=== PATIENT | female | born 1965 | race Caucasian/White ===

== ENCOUNTER 2025-04-12 06:20 | Day surgery (SDC) | payer BC, OTHER ==
[2025-04-09 12:20] LABS: Absolute Basophils 0.1 K/uL (0-0.5); Absolute Eosinophils 0.1 K/uL (0-0.5); Absolute Monocytes 0.3 K/uL (0.1-1.3); Absolute Neutrophil 2.4 K/uL (1.8-8.0); Basophils % 1.1 % (0-1.3); Eosinophils % 1.4 % (0-4.4); Hematocrit 40.5 % (36.0-45.0); Hemoglobin 13.8 g/dL (12.0-15.0); Lymphocytes % 42.2 % (15.3-44.8); MCH 29.7 pg (27.0-35.0); MCV 87.4 fL (80-100); MPV 8.2 fL (7.6-11.3); Monocytes % 6.8 % (3.3-12.3); Neutrophils % 48.5 % (41.7-73.7); Nucleated Red Blood Cells % 0.1 % (0-0); Platelets 242 thou/uL (152-406); RBC Red Blood Cell Count 4.63 M/uL (3.86-4.86); Red Cell Distribution Width 13.8 % (12.1-15.2)
[2025-04-09 12:32] LABS: Specific Gravity 1.022 (1.005-1.030); Sqamous Epithelial <5 /HPF (None Seen); Transitional Epithelial <5 /HPF (None Seen); Urine Bacteria None Seen /HPF (<20); Urine Bilirubin NEGATIVE (Negative); Urine Blood 1+ (Negative); Urine Clarity Clear (Clear); Urine Color Light-Yellow (Yellow); Urine Culture Reflex Order NOT NEEDED; Urine Glucose TRACE (Negative); Urine Ketones NEGATIVE (Negative); Urine Microscopic Reflex YN ORDER UMIC; Urine Mucus Slight /HPF (None Seen); Urine Nitrite NEGATIVE (Negative); Urine Protein NEGATIVE (Negative); Urine RBC <5 /HPF (None Seen); Urine Urobilinogen Normal (Normal); Urine WBC <5 /HPF (<5)
[2025-04-09 12:38] LABS: Anion Gap 9.4 mEq/L (5.0-15.0); Potassium 4.4 mEq/L (3.5-5.1)
[2025-04-12] MEDS: Ringers Lactate 1,000 ML IV ONE ×2 (06:50→10:08)
[2025-04-12] MEDS: SCOPOLAMINE HYDROBROMIDE PATCH TD ONE (07:30)
[2025-04-12] MEDS ORDERED: ROCURONIUM 50 MG/5 ML VIAL IV ONE (07:34)
[2025-04-12] MEDS ORDERED: MIDAZOLAM HCL 2 MG/2 ML INJ ONE (07:34)
[2025-04-12] MEDS ORDERED: FENTANYL CITR 100 MCG/2 ML ONE (07:34)
[2025-04-12] MEDS ORDERED: LIDOCAINE 2% MPF 5 ML VIAL ONE (07:34)
[2025-04-12] MEDS ORDERED: propofoL 200 MG/20 ML VIAL IV ONE (07:34)
[2025-04-12] MEDS ORDERED: ONDANSETRON 4 MG/2 ML VIAL ONE (07:34)
[2025-04-12] MEDS ORDERED: SUCCINYLCHOLINE 20 MG/ML (10 ML) IV ONE (07:37)
[2025-04-12] MEDS ORDERED: SUGAMMADEX SODIUM 200 MG/2 ML VIAL IV ONE (07:37)
[2025-04-12] MEDS ORDERED: HYDROMORPHONE HCL 1 MG/ML INJ ONE (07:37)
[2025-04-12] MEDS ORDERED: EPHEDRINE SULF 50 MG/ML VIAL ONE (07:56)
[2025-04-12] MEDS ORDERED: GLYCOPYRROLATE 0.2 MG/ML SYR ONE ×2 (07:57→10:17)
[2025-04-12] MEDS: CEFAZOLIN SODIUM 1 GM/VIAL ONE (08:11)
[2025-04-12] MEDS: CEFAZOLIN SODIUM 2 GM/VIAL ONE (08:11)
[2025-04-12] MEDS ORDERED: dexAMETHasone 10 MG/ML VIAL ONE (08:12)
[2025-04-12] MEDS: BUPIVACAINE 0.25% PF 30 ML VIAL ONE (08:32)
[2025-04-12] MEDS ORDERED: Mastisol Adhesive Liq ONE (09:37)
[2025-04-12] MEDS ORDERED: KETOROLAC 30 MG/ML INJ ONE (10:04)
[2025-04-12] MEDS ORDERED: NEOSTIGMINE 1 MG/ML -10 ML VIAL ONE (10:18)
[2025-04-12] MEDS: FENTANYL CITR 100 MCG/2 ML ONE (11:04)
[2025-04-12] MEDS: HYDROCODONE/APAP 5/325 MG TAB ONE (12:00)
[2025-04-12 15:01] VITALS: BP 135/68; TEMP 97; O2SAT 100
--- NOTE | 2025-04-12 20:42 | OP ---
Date of Procedure: 04/12/2025 Surgeon: Aracelis Childress MD Preoperative Diagnosis: Postmenopausal bleeding and fibroids. Postoperative Diagnosis: Postmenopausal bleeding and fibroids. Procedures Performed: Total laparoscopic hysterectomy, bilateral salpingo-oophorectomy, pelvic washi ngs, and morcellation for retrieval of the uterine specimen, which was significantly enlarged had to be morcellate to the vagina. Indication: The patient is a 59-year-old with postmenopausal bleeding. Transvaginal ultrasound was performed. Endometrium appeared to be taken. She also had a large 6.5 cm fibroid. All these were e xplained to the patient. Then endometrial sampling was performed with hysteroscopy which was negativ e for leiomyosarcoma atypia malignancy of the endometrium. Once she was counseled about her options of observation with ultrasound followup and recurrent sympto ms that we would continue to treat her. She wanted to proceed with definitive treatment using hyster ectomy. All the benefits and risks were reviewed with the patient and consented. She was taken back to OR after re-consented in the preoperative area and her also was present to ask questions and they were answered to the satisfaction. Description Of Procedure: She was taken to the OR, placed in supine fashion on the operating table. General anesthesia was given. She was placed in a dorsal lithotomy position in Barrington stirrups. 2 g of Ancef was given. Time-out was done and procedure started. The speculum was placed to expose the cervix. Anterior lip grasped with a single-tooth tenaculum. Cervix was dilated to 18-Iraqi and a large cup uterine manipulator was used to fix in place and Godoy to drain the bladder and attached to gravity bag. This area was then draped. The fascia and skin were injected with 0.25% bupivacaine at all incision sites prior to making incisi ons. Infraumbilical incision made with a scalpel, using open laparoscopy technique. Fascia was incised ta gged with 0 Vicryl sutures. Peritoneum was entered bluntly. S retractors were placed after adequate insufflation Sherrie was placed, unremarkable. Upper abdominal surface was unremarkable a s well. The patient was placed in steep Trendelenburg and suprapubic and left lower quadr ant ports 5 ports were placed. There was adequate visualization and I believe that I needed another hand so a right lower quadrant incision was also made with a trocar. Once the instruments in good position, then proceeded with hysterectomy. Bilateral salpingo-oophorectomy and hysterectomy. The left round ligament was opened up and pedicle created taken down with the LigaSure. The dissection carried towards the IP ligament through the mes osalpinx. Once the medial and lateral leaves of the broad ligament of the pelvic peritoneum were ope april up then the pedicle was isolated. Similar dissection was performed opposite side taking down the round ligament and IP ligament. Then, the IP was cauterized and cut. Pelvic washings were first pe rformed for started operating. On the right side, the IP was taken down as well as the round ligament. Then, anterior broad ligamen t was opened up all the way from 1 round ligament to the other. The bladder was dissected inferiorly at least 2 cm below the level of the cup and posteriorly the peritoneum taken down to both uterosacr al ligaments and then the ureter identified and dissected away from the medial leaf of the broad liga ment, especially on the left side. There was no problem on the right side to isolated and it was not scar. Then, the broad ligaments were both taken down with the help of the LigaSure. Vessels were skeletoni zed, cauterized and cut with the help of LigaSure and bipolar, a curved tip grasper. Then monopolar was then used to perform a circumferential colpotomy and detached the specimen. Vaginal morcellation. Two Allis clamps were placed on the cervix and the specimen brought into visio n through the vaginal canal. The [place] clamps were then placed on the cervix and manual morc ellation was conducted with a 10 blade for good exposure with 2 Caleb and suction tip and a Wahl spe culum posteriorly. Once all the specimen was morcellated and removed, then vaginal occluder was plac ed. Gloves and gowns were all changed and then I went back and she was repositioned in the T Ankush. Vaginal cuff was closed with the help of 2 angle 0 simple PDS sutures and then 3 [id number] in the middle paying close attention to including the connective tissue of both anterior and posterior v aginal bentley. Once there was excellent closure and hemostasis. Both ureters were checked, no eviden ce of any trauma to them. All pedicles were hemostatic. The appendix and upper abdominal surfaces o mentum were all unremarkable. I did pelvic washings before the procedure started. After removing all trocars under direct vision, gas was desufflated. Fascia at the umbilicus was rolan sed with tag 0 Vicryl sutures tied to each other and simple 0 Vicryl stitch at the suprapubic site. All incisions closed with the help of 4-0 Vicryl in interrupted fashion. The vaginal occluder was removed. Godoy was removed. The patient was recovered from anesthesia and taken to PACU in stable condition and her and the patient were counseled on the findings once she was slightly more awake. She will follow up in 7-10 days postop. We will follow up pathology results and communicate with her. No contamination due to morcellation into the abdominal peritoneal cavity. LORIE/ROXANNA Voice ID: [id number] Report ID: [id number]
--- NOTE | 2025-04-17 12:53 | EKG ---
Test Date: 2025-04-09 Test Time: 12:05:07 Ab [employer] Etl Developer: ZAIRE MEASUREMENT RESULTS: Intervals: Rate: 66 NM: 182 QRSD: 106 QT: 410 QTc: 429 Worth: P: 53 NM: 182 QRS: 50 T: 43 INTERPRETIVE STATEMENTS: Normal sinus rhythm Normal ECG No previous ECG available for comparison Electronically Signed On 04-17-25 12:34:32 CDT by Ronny Shah
== END 2025-04-12 14:23 | disposition home or self-care (01) ==
LOC: OR 06:20
PROVIDERS: ATTEND Obstetrics & Gynecology
PROC: 0UT2FZZ Resection of Bilateral Ovaries, Via Natural or Artificial Opening With Percutaneous Endoscopic Assistance (ICD-10-PCS; 2025-04-12)
PROC: 0UT7FZZ Resection of Bilateral Fallopian Tubes, Via Natural or Artificial Opening With Percutaneous Endoscopic Assistance (ICD-10-PCS; 2025-04-12)
PROC: 0UT9FZZ Resection of Uterus, Via Natural or Artificial Opening With Percutaneous Endoscopic Assistance (ICD-10-PCS; principal; 2025-04-12 07:30)
DX: N95.0 Postmenopausal bleeding (principal); R19.00 Intra-abdominal and pelvic swelling, mass and lump, unspecified site; D25.9 Leiomyoma of uterus, unspecified; N72 Inflammatory disease of cervix uteri; N83.202 Unspecified ovarian cyst, left side
CPT/HCPCS: 93005; 85025; 81001; 80048; 36415; 86900; 88108; 86850; 86901; 88305; 88307; 58554; A4314; J2704; J2710; J2003; J2250; J3010 ×2; J1100; J1171; J2405; J7120 ×2; J0690